=== PATIENT | male | born 1985 | race Caucasian/White ===

== ENCOUNTER → 2017-04-01 | Day surgery (SDC) | payer OTHER ==
[~2017-04-01] VITALS: Ht 167.6 cm; Wt 68.0 kg
--- NOTE | 2017-04-04 16:33 | Operative Report ---
Operative/Inv Procedure Report Surgery Date: 04/01/17 Name of Procedure: Excision of pilonidal cyst, intermediate complexity Pre-Operative Diagnosis: Recurrent pilonidal cyst Post-Operative Diagnosis: Same Estimated Blood Loss: scant Surgeon/Java Security Architect: Tone REYES,Jozef Rodriguez Anesthesia: general endotracheal tube Operative/Procedure Note Note: Patient was placed on the OR table supine, after successful induction of general anesthesia pt was turned into prone, and then the buttocks were taped clipped prepped and draped in the usual sterile fashion. The indurated / healig abscess cavity area was at the top of the gluteal cleft in the middle. An incision was planned to excise that upper portion of gluteal cleft that contains the crypts and then a second one at the top, to the right, to excise the abscess cavity and the cyst. This midline elliptical incision was drawn and then injected with local anesthetic and then made with a 15 blade. Once through the dermis, the excision proceeded laterally with cautery and deep to the fascia covering the coccyx, excising this scarred and granulation tissue in one piece. After this was removed the space was inspected for hemostasis especially at the dermis, with cautery and then reapproximated in layers with multiple interrupted 3-0 Vicryl sutures followed by 4-0 nylon for the skin itself, but at the top we left it open and wicked it with iodoform, followed by bacitracin and fluff and gauze. EBL minimal lap and sponge counts correct wound expectancy contaminated IV fluids crystalloid complications none patient tolerated the procedure well was awakened extubated and returned to the recovery room in satisfactory condition.
== END ==
LOC: STS 01:54
DX: L05.01 Pilonidal cyst with abscess (principal); F17.200 Nicotine dependence, unspecified, uncomplicated; Z86.73 Personal history of transient ischemic attack (TIA), and cerebral infarction without residual deficits
CPT/HCPCS: J0131; J0690; J2250; J2405